=== PATIENT | male | born 1945 | race Caucasian/White ===

== ENCOUNTER 2024-02-04 14:45 | Outpatient (RCR) | payer MEDICARE, SELFPAY | END 2024-06-01 16:26 | disposition home or self-care (01) | PROVIDERS: PCP Student in an Organized Health Care Education/Training Program; Visit Provider Student in an Organized Health Care Education/Training Program | DX: M54.42 Lumbago with sciatica, left side (principal); M54.41 Lumbago with sciatica, right side; G89.29 Other chronic pain; G57.11 Meralgia paresthetica, right lower limb; M25.551 Pain in right hip; R29.898 Other symptoms and signs involving the musculoskeletal system; R10.2 Pelvic and perineal pain; R53.1 Weakness; R20.0 Anesthesia of skin; Z51.89 Encounter for other specified aftercare | CPT/HCPCS: 97110; 97140; 97162 ==

== ENCOUNTER 2024-05-06 14:16 | Outpatient (RCR) | payer MEDICARE, SELFPAY | END 2024-09-03 23:59 | disposition home or self-care (01) | PROVIDERS: PCP Student in an Organized Health Care Education/Training Program; Visit Provider Student in an Organized Health Care Education/Training Program | DX: R41.89 Other symptoms and signs involving cognitive functions and awareness (principal); Z91.89 Other specified personal risk factors, not elsewhere classified; Z51.89 Encounter for other specified aftercare | CPT/HCPCS: 97165 ==

== ENCOUNTER 2024-09-11 11:31 | Outpatient (CLI) | payer MEDICARE, SELFPAY ==
--- NOTE | 2024-09-11 12:56 | P.ANES_ITS ---
Anesthesia Charges Start Date/Time Anesthesia Start Date: 09/11/24 Anesthesia Start Time: 12:25 Stop Date/Time Anesthesia Stop Date: 09/11/24 Anesthesia Stop Time: 12:53 Summary Extremes of Age - Over 70 or under 1: PHARMACY DELIVERY DRIVER Coding CPT Codes CPT Codes: ANES LWR INTST SCR COLSC - 67372 ([id number]) P3 - PATIENT W/SEVERE SYS DISEASE, QK - PEDIATRIC GENETICIST 2-4 CNCRNT ANES PROC, QX - PHARMACY DELIVERY DRIVER SVC W/ MD MED DIRECTION Additional Codes: Summary - Extremes of Age - Over 70 or under 1: PHARMACY DELIVERY DRIVER ([id number])
--- NOTE | 2024-09-11 12:56 | W.ANESCHARGE ---
Anesthesia Charges Start Date/Time Anesthesia Start Date: 09/11/24 Anesthesia Start Time: 12:25 Stop Date/Time Anesthesia Stop Date: 09/11/24 Anesthesia Stop Time: 12:53 Summary Extremes of Age - Over 70 or under 1: SUPERVISOR TRAVEL INFORMATION CENTER Coding CPT Codes CPT Codes: ANES LWR INTST SCR COLSC - 48896 ([id number]) P3 - PATIENT W/SEVERE SYS DISEASE, QK - MEDICAL CASE MANAGER 2-4 CNCRNT ANES PROC, QX - SUPERVISOR TRAVEL INFORMATION CENTER SVC W/ MD MED DIRECTION Additional Codes: Summary - Extremes of Age - Over 70 or under 1: SUPERVISOR TRAVEL INFORMATION CENTER ([id number])
--- NOTE | 2024-09-11 13:20 | W.ANESCHARGE ---
Anesthesia Charges Start Date/Time Anesthesia Start Date: 09/11/24 Anesthesia Start Time: 12:25 Stop Date/Time Anesthesia Stop Date: 09/11/24 Anesthesia Stop Time: 12:53 Summary Extremes of Age - Over 70 or under 1: MDA Coding CPT Codes CPT Codes: ANES LWR INTST SCR COLSC - 06242 ([id number]) QK - CENTRAL OFFICE MAINTAINER 2-4 CNCRNT ANES PROC, QX - DIRECT SUPPORT PROFESSIONAL HOME HEALTH SVC W/ MD MED DIRECTION, P3 - PATIENT W/SEVERE SYS DISEASE Additional Codes: Summary - Extremes of Age - Over 70 or under 1: MDA ([id number])
== END 2024-09-11 11:32 | disposition home or self-care (01) ==
PROVIDERS: PCP Student in an Organized Health Care Education/Training Program; Visit Provider Internal Medicine Gastroenterology
DX: Z12.11 Encounter for screening for malignant neoplasm of colon (principal); Q43.8 Other specified congenital malformations of intestine
CPT/HCPCS: 00812; 45378; 99100; J2704